=== PATIENT | female | born 1955 | race American Indian/Alaskan Native ===

== ENCOUNTER 2016-11-07 12:12 | Emergency (ER) | payer OTHER ==
[2016-11-07 12:28] VITALS: BP 114/72; PULSE 71; TEMP 97.7; BMI 29.6
--- NOTE | 2016-11-07 12:54 | PDOC ---
History of Present Illness - General Chief Complaint: Foreign Body (FB) Stated Complaint: OBJECT IN EYE Time Seen by Provider: 11/07/16 12:36 History Source: Patient Exam Limitations: No Limitations - History of Present Illness Initial Comments: 11/07/16 18:52 61 yr female c/o a piece of potato chip got in her right eye today and she feels some discomfort. no photophobia no tearing. Timing/Duration: momentarily Severity: mild Associated Symptoms: reports: denies symptoms Past History - Past Medical History Allergies/Adverse Reactions: Allergies Allergy/AdvReac Type Severity Reaction Status Date / Time lactose Allergy Verified 11/07/16 12:23 Home Medications: Ambulatory Orders Tobramycin 0.3% Ophth Soln [Tobrex Ophthalmic Solution -] 1 drop OD TID #1 bottle 11/07/16 Other medical history: HYPOGLYCEMIA - Psycho/Social/Smoking Cessation Hx Anxiety: No Suicidal Ideation: No Smoking History: Former smoker Have you smoked in the past 12 months: No Information on smoking cessation initiated: No Hx Alcohol Use: No Substance Use Type: None Review of Systems - Review of Systems Able to Perform ROS?: Yes Is the patient limited Nigerien proficient: No Constitutional: No: Symptoms Reported HEENTM: Yes: Symptoms Reported, See HPI Respiratory: No: Symptoms reported Cardiac (ROS): No: Symptoms Reported ABD/GI: No: Symptoms Reported : No: Symptoms Reported Musculoskeletal: No: Symptoms Reported Integumentary: No: Symptoms Reported Neurological: No: Symptoms reported *Physical Exam - Vital Signs Last Vital Signs Temp Pulse Resp BP Pulse Ox 97.7 F 71 19 114/72 97 11/07/16 12:23 11/07/16 12:23 11/07/16 12:23 11/07/16 12:23 11/07/16 12:23 - Physical Exam General Appearance: Yes: Nourished, Appropriately Dressed HEENT: positive: EOMI, DEONNA, Normal ENT Inspection, TMs Normal, Pharynx Normal, Other (neg tearing neg photophobia ) Neck: positive: Supple. negative: Tender Respiratory/Chest: positive: Lungs Clear, Normal Breath Sounds Cardiovascular: positive: Regular Rhythm, Regular Rate Gastrointestinal/Abdominal: positive: Normal Bowel Sounds, Soft Musculoskeletal: positive: Normal Inspection Extremity: positive: Normal Capillary Refill, Normal Inspection, Normal Range of Motion. negative: Tender Integumentary: positive: Normal Color, Dry, Warm Neurologic: positive: thermostat machine tender II-XII NML intact, Fully Oriented, Alert, Normal Mood/ Affect, Normal Response, Motor Strength 5/5 Procedures - Eye Procedure Alcaine Drops Administered: Yes Eye Irrigated w/ Saline(Ritesh Lens): Yes (200cc) Progress: 11/07/16 18:53 no fb,, no corneal abrasion seen on exam Medical Decision Making - Medical Decision Making 11/07/16 18:54 cc: feeling FB in right eye neg fluoroscein uptake will prescribe tobra drops as directed follow with the eye doctor in 1-2 days for follow up pt understands and agrees with the plan of care *DC/Admit/Observation/Transfer Diagnosis at time of Disposition: Foreign body, eye Qualifiers: Encounter type: initial encounter Laterality: right Qualified Code(s): T15.91XA - Foreign body on external eye, part unspecified, right eye, initial encounter - Discharge Dispostion Disposition: HOME Condition at time of disposition: Improved - Prescriptions Prescriptions: Tobramycin 0.3% Ophth Soln [Tobrex Ophthalmic Solution -] 1 drop OD TID #1 bottle - Referrals Referrals: Jimi Lopez [Primary Care Provider] - Sherman Collier MD [Staff Physician] - - Patient Instructions Additional Instructions: use the eye drops as directed for 7 days follow with or your eye doctor for follow up in 2-3 days
== END 2016-11-07 12:56 | disposition home or self-care (01) ==
LOC: JERFT 12:12
PROC: 3E1CX8Z Irrigation of Eye using Irrigating Substance (ICD-10-PCS; principal; 2016-11-07)
DX: T15.81XA Foreign body in other and multiple parts of external eye, right eye, initial encounter (principal)
CPT/HCPCS: 99281-25

== ENCOUNTER 2019-05-27 12:02 | Emergency (ER) | payer OTHER | END 2019-05-27 16:21 | disposition home or self-care (01) | LOC: JER 12:02 ==

== ENCOUNTER 2019-12-03 12:35 | Emergency (ER) | payer OTHER ==
--- NOTE | 2019-12-03 13:05 | PDOC ---
Rapid Medical Evaluation Time Seen by Provider: 12/03/19 12:50 Medical Evaluation: Allergies Allergy/AdvReac Type Severity Reaction Status Date / Time lactose Allergy Verified 05/27/19 12:05 12/03/19 12:51 CC: abdominal pain with n/v/d. Undigested food vomitus. Loose brown stool. Denies blood in vomit or stool. PE: No focal findings. Orders: labs, urine, zofran Patient will proceed to ED for evaluation. Discharge Disposition - Diagnosis Abdominal pain - Referrals - Patient Instructions - Post Discharge Activity
[2019-12-03] MEDS ORDERED: ONDANSETRON 4 MG/2 ML VIAL IVPUSH ONE (13:06)
[2019-12-03] MEDS ORDERED: SODIUM CHLORIDE 1,000 ML IV STA (13:06)
[2019-12-03 13:07] VITALS: BP 111/68; PULSE 93; TEMP 98.2; BMI 30.2
[2019-12-03] MEDS ORDERED: FAMOTIDINE 20 MG/50 ML IVPB 20 MG in PREMIX 50 IVPB ONE (13:32)
[2019-12-03] MEDS ORDERED: ACETAMINOPHEN 325 MG TABLET (FP) PO ONE (13:33)
--- NOTE | 2019-12-03 13:36 | PDOC ---
History of Present Illness - General Chief Complaint: Nausea/Vomiting Stated Complaint: VOMITING Time Seen by Provider: 12/03/19 12:50 History Source: Patient Exam Limitations: No Limitations - History of Present Illness Initial Comments: 12/03/19 15:14 CHIEF COMPLAINT: Vomiting/diarrhea HISTORY OF PRESENT ILLNESS: This is a 64-year-old female with a history of asthma (no hospitalizations) and anxiety/depression who presents with one day of generalized abdominal pain, vomiting, and diarrhea. She feels like she is "abou to get a fever." Vital signs on arrival are notable for HR 93. REVIEW OF SYSTEMS: GENERAL/CONSTITUTIONAL: Subjective fever. No weakness. No weight change. HEAD, EYES, EARS, NOSE AND THROAT: No change in vision. No ear pain or discharge. No sore throat. CARDIOVASCULAR: No chest pain or palpitations. RESPIRATORY: No cough, wheezing, or shortness of breath. GASTROINTESTINAL: See HPI. GENITOURINARY: No dysuria, frequency, or change in urination. MUSCULOSKELETAL: No joint or muscle swelling or pain. No neck or back pain. SKIN: No rash or easy bruising. NEUROLOGIC: No headache, vertigo, loss of consciousness, or loss of sensation. PSYCHIATRIC: No depression or anxiety. ENDOCRINE: No increased thirst. No abnormal weight change. HEMATOLOGIC/LYMPHATIC: No anemia, easy bleeding, or history of blood clots. ALLERGIC/IMMUNOLOGIC: No hives or skin allergy. No latex allergy. PHYSICAL EXAM: GENERAL: The patient is awake, alert, and fully oriented, in no acute distress. HEAD: Normal with no signs of trauma. ENT: Mild pharyngeal erythema without tonsillar swelling or exudates. Pupils equal, round and reactive to light, extraocular movements intact, sclera anicteric, conjunctiva clear. Neck supple. LUNGS: Clear to auscultation bilaterally. Normal excursion. No respiratory distress or use of accessory muscles. CV: RRR, S1/S2, no MRG. Cap refill < 2 sec. ABDOMEN: Soft, non-distended, diffusely tender but not peritoneal. EXTREMITIES: Normal range of motion, no edema. NEUROLOGICAL: Normal speech, normal gait. CN II-XII grossly intact. PSYCH: Normal mood, normal affect. SKIN: Warm, dry, normal turgor, no rashes or lesions noted. 12/03/19 15:35 Past History - Past Medical History Allergies/Adverse Reactions: Allergies Allergy/AdvReac Type Severity Reaction Status Date / Time lactose Allergy Verified 12/03/19 13:07 Home Medications: Ambulatory Orders Famotidine [Pepcid] 20 mg PO DAILY #20 tablet 05/27/19 Cephalexin Monohydrate [Keflex -] 500 mg PO BID #10 capsule 12/03/19 Ondansetron [Zofran *Odt*] 4 mg SL TID PRN #21 od.tablet 12/03/19 Asthma: Yes COPD: No - Immunization History Immunization Up to Date: Yes - Psycho Social/Smoking Cessation Hx Smoking History: Former smoker Have you smoked in the past 12 months: No Information on smoking cessation initiated: No Hx Alcohol Use: No Drug/Substance Use Hx: No Substance Use Type: None *Physical Exam - Vital Signs Last Vital Signs Temp Pulse Resp BP Pulse Ox 98.2 F 93 H 17 111/68 100 12/03/19 13:04 12/03/19 13:04 12/03/19 13:04 12/03/19 13:04 12/03/19 13:04 ED Treatment Course - LABORATORY CBC & Chemistry Diagram: 12/03/19 14:22 12/03/19 14:22 Medical Decision Making - Medical Decision Making 12/03/19 15:21 A/P: 64-year-old female with generalized abdominal pain and nausea/vomiting. 1. Labs including CBC, CMP, lipase, UA/culture 2. Zofran and Pepcid for symptomatic relief Labs notable for UA with 2+ leuk esterase. Culture sent. Will treat with Keflex. Patient reevaluated and feeling much better. Tolerating PO. Discussed CTAP to rule out further intra-abdominal pathology, however she does not wish to have IV placed given that she is a difficult stick, and states that she is feeling better and would like to leave. Follow-up instructions and return precautions reviewed. Discharge - Discharge Information Problems reviewed: Yes Clinical Impression/Diagnosis: Abdominal pain Condition: Improved Disposition: HOME - Admission No - Additional Discharge Information Prescriptions: Cephalexin Monohydrate [Keflex -] 500 mg PO BID #10 capsule Ondansetron [Zofran *Odt*] 4 mg SL TID PRN #21 od.tablet PRN Reason: Nausea - Follow up/Referral Referrals: Binh Winslow MD, MD [Primary Care Provider] - - Patient Discharge Instructions Patient Printed Discharge Instructions: DI for Urinary Tract Infection (UTI) Additional Instructions: You are being treated for urinary tract infection. Take Keflex (an antibiotic) as prescribed. Use Zofran as prescribed if needed for nausea. Follow-up with your primary care doctor next week. Return here for worsening pain, fever, vomiting/inability to keep down fluids, or any other concerning symptoms. - Post Discharge Activity
[2019-12-03] MEDS ORDERED: ONDANSETRON *ODT* 4 MG TABLET SL ONE (13:47)
[2019-12-03] MEDS ORDERED: FAMOTIDINE 20 MG TABLET PO ONE (13:47)
[2019-12-03] MEDS ORDERED: ACETAMINOPHEN 325 MG TABLET (FP) ONE (14:02)
[2019-12-03] MEDS ORDERED: FAMOTIDINE 20 MG TABLET ONE (14:02)
[2019-12-03] MEDS ORDERED: ONDANSETRON *ODT* 4 MG TABLET ONE (14:03)
[2019-12-03 14:28] LABS: HYALINE CASTS 3 /lpf (0-8); URINE APPEARANCE CLEAR; URINE BACTERIA 49.6 /hpf (NEGATIVE); URINE BILIRUBIN NEGATIVE (NEGATIVE); URINE COLOR YELLOW; URINE GLUCOSE (UA) NEGATIVE (NEGATIVE); URINE KETONE NEGATIVE (NEGATIVE); URINE LEUK ESTERASE 2+ (NEGATIVE); URINE NITRITE NEGATIVE (NEGATIVE); URINE PROTEIN NEGATIVE (NEGATIVE); URINE UROBILINOGEN 0.2 mg/dL (0.2-1.0); URINE WBC 4 /hpf (0-5)
[2019-12-03] MEDS ORDERED: CEPHALEXIN MONOHYDRATE 500 MG CAPSULE (UD) PO ONE (14:38)
[2019-12-03 14:39] LABS: BASO % 0.2 % (0-2.0); EOS % 0.4 % (0-4.5); HEMATOCRIT 37.3 % (32.4-45.2); HEMOGLOBIN 12.7 GM/dL (10.7-15.3); LYMPH % 11.7 % (8-40); MCH 29.1 pg (25.7-33.7); MCHC 34.1 g/dl (32.0-36.0); MEAN CELL VOLUME 85.5 fl (80-96); MEAN PLT VOLUME 9.4 fl (7.5-11.1); MONO % 4.9 % (3.8-10.2); NEUT % 82.8 % (42.8-82.8); PLATELET COUNT 192 K/MM3 (134-434); RBC 4.36 M/mm3 (3.60-5.2); RDW 14.4 % (11.6-15.6); WHITE BLOOD COUNT 8.2 K/mm3 (4.0-10.0)
[2019-12-03] MEDS ORDERED: CEPHALEXIN MONOHYDRATE 500 MG CAPSULE (UD) ONE (14:51)
[2019-12-03 15:11] LABS: ALBUMIN 3.3 g/dl (3.4-5.0); BILIRUBIN,TOTAL 0.6 mg/dL (0.2-1); BLOOD UREA NITROGEN 23.8 mg/dL (7-18); CALCIUM 8.7 mg/dL (8.5-10.1); CREATININE 0.7 mg/dL (0.55-1.3); POTASSIUM 3.8 mmol/L (3.5-5.1)
[2019-12-03 15:17] LABS: URINE RBC 0 /hpf (0-4)
== END 2019-12-03 15:33 | disposition home or self-care (01) ==
LOC: JER 12:35
DX: N39.0 Urinary tract infection, site not specified (principal); Z87.09 Personal history of other diseases of the respiratory system
CPT/HCPCS: 36415; 80053; 81003; 83690; 85025; 87086; 87804; 99284-25; Q0162

== ENCOUNTER 2020-04-15 12:05 | Emergency (ER) | payer OTHER ==
[2020-04-15 12:13] VITALS: BP 124/69; PULSE 73; BMI 29.6
[2020-04-15] MEDS ORDERED: DIPHTH,PERTUSS(ACELL),TET 0.5 ML DISP.SYRIN IM ONE (12:13)
--- NOTE | 2020-04-15 12:18 | PDOC ---
Rapid Medical Evaluation Chief Complaint: Injury Time Seen by Provider: 04/15/20 12:11 Medical Evaluation: Allergies Allergy/AdvReac Type Severity Reaction Status Date / Time lactose Allergy Verified 04/15/20 12:11 Vital Signs Temp Pulse Resp BP Pulse Ox 73 17 124/69 100 04/15/20 12:12 04/15/20 12:12 04/15/20 12:12 04/15/20 12:12 04/15/20 12:15 I have performed a brief in-person evaluation of this patient. The patient presents with a chief complaint of: LT foot pain s/p stepping on a glass today. does not recall last tetanus Pertinent physical exam findings: left foot wrapped with angela bandage. ambulating normal I have ordered the following: foot x-ray, boostrix The patient will proceed to the ED for further evaluation. Discharge Disposition - Diagnosis Injury of left foot - Discharge Dispostion Condition at time of disposition: Stable - Referrals - Patient Instructions - Post Discharge Activity
--- NOTE | 2020-04-15 12:39 | PDOC ---
History of Present Illness - General Chief Complaint: Injury Stated Complaint: LT FOOT INJURY Time Seen by Provider: 04/15/20 12:11 History Source: Patient Exam Limitations: No Limitations - History of Present Illness Initial Comments: 04/15/20 12:34 HISTORY OF PRESENT ILLNESS: 65-year-old female presents emergency department for evaluation of pain to the plantar surface of her left foot. Patient reports she was walking in her apartment barefoot when she stepped on some broken glass which was there after her son broke a dish accidentally. Patient reports she stepped on the glass approximately 2 days ago and has had pain to the bottom of her left foot since then. No recent travel or sick contacts. PAST MEDICAL HISTORY: Denies past medical history SURGICAL HISTORY: Denies ALLERGIES: No known drug allergies; lactose, wheat REVIEW OF SYSTEMS General/Constitutional: Denies fever or chills. Denies weakness, weight change. HEENT: Denies change in vision. Denies ear pain or discharge. Denies sore throat. Cardiovascular: Denies chest pain or shortness of breath. Respiratory: Denies cough, wheezing, or hemoptysis. Gastrointestinal: Denies nausea, vomiting, diarrhea or constipation. Denies rectal bleeding. Genitourinary: Denies dysuria, frequency, or change in urination. Musculoskeletal: Denies joint or muscle swelling or pain. Denies neck or back pain. Skin and breasts: See HPI Neurologic: Denies headache, vertigo, loss of consciousness, or loss of sensation. Psychiatric: Denies depression or anxiety. Endocrine: Denies increased thirst. Denies abnormal weight change. Hematologic/Lymphatic: Denies anemia, easy bleeding, or history of blood clots. Allergic/Immunologic: Denies hives or skin allergy. Denies latex allergy. PHYSICAL EXAM General Appearance: Well-appearing, appropriately dressed. No apparent distress, no intoxication. Musculoskeletal/Extremities: Normal inspection. FROM of all extremities, normal capillary refill. Pelvis Stable. No CVA tenderness. No tenderness to extremities, pedal edema, swelling, erythema or deformity. Integumentary: Glass fragment present to the plantar surface of the left foot. Surrounding erythema noted without induration or fluctuance present. Past History - Medical History Allergies/Adverse Reactions: Allergies Allergy/AdvReac Type Severity Reaction Status Date / Time lactose Allergy Verified 04/15/20 12:11 Home Medications: Ambulatory Orders NK [No Known Home Medication] 04/15/20 Asthma: Yes COPD: No - Immunization History Immunization Up to Date: No - Psycho-Social/Smoking History Smoking History: Never smoked Have you smoked in the past 12 months: No - Substance Abuse Hx (Audit-C & DAST Scrn) How often the patient has a drink containing alcohol: Never Score: In Men: 4 or > Positive; In Women: 3 or > Positive: 0 Screen Result (Pos requires Nsg. Audit-10AR): Negative In the last yr the pt used illegal drug/Rx for NonMed reason: No Score: Yes response is considered Positive: 0 Screen Result (Positive result requires Nsg. DAST-10): Negative *Physical Exam - Vital Signs Last Vital Signs Temp Pulse Resp BP Pulse Ox 73 17 124/69 100 04/15/20 12:12 04/15/20 12:12 04/15/20 12:12 04/15/20 12:12 Medical Decision Making - Medical Decision Making 04/15/20 12:40 A/P: 65-year-old woman with left plantar foot foreign body sensation 1 cm circular area of erythema presents with tenderness presents in the center of the erythematous area. Foreign body seen under magnification. Foreign body removed using bevel of an 18-gauge needle No discharge or drainage from the wounds No fluctuance appreciated As this is an organic material will defer antibiotic treatment at this time. patient is refusing antibiotic treatment as well. Patient refusing tetanus at this time Discharge home Portions of this note have been documented using voice recognition software. As a result, errors may occur in the staff mine warfare officer process. Effort has been made to correct all grammatical and staff mine warfare officer error, but some may have been missed which may produce sporadic inaccurate staff mine warfare officer or nonsensical phrases. Discharge - Discharge Information Problems reviewed: Yes Clinical Impression/Diagnosis: Foreign body foot/toe Condition: Stable Disposition: HOME - Admission No - Follow up/Referral Referrals: Luke Gonzales [Primary Care Provider] - - Patient Discharge Instructions Additional Instructions: Continue warm soaks to your foot. Take Tylenol or Motrin as needed for pain. Follow bacon skin lifter instructions for appropriate dosage. You were offered tetanus immunization today which you refused. It is recommended that you stay up-to-date on your vaccinations. Follow-up with your primary doctor for any new or worsening symptoms. Thank you very much for choosing us to provide your emergent healthcare needs. - Post Discharge Activity
== END 2020-04-15 12:43 | disposition home or self-care (01) ==
LOC: JERFT 12:05
DX: S90.852A Superficial foreign body, left foot, initial encounter (principal); Y99.8 Other external cause status
CPT/HCPCS: 99282-25

== ENCOUNTER → 2021-11-21 | Day surgery (SDC) | payer OTHER | END | disposition home or self-care (01) | LOC: JMAMMO-SUR 09:33 | PROVIDERS: ATTEND Nurse Practitioner Adult Health | PROC: 0HBT3ZX Excision of Right Breast, Percutaneous Approach, Diagnostic (ICD-10-PCS; principal; 2021-11-21) | DX: D17.1 Benign lipomatous neoplasm of skin and subcutaneous tissue of trunk (principal); N63.10 Unspecified lump in the right breast, unspecified quadrant | CPT/HCPCS: 19083; 87899; 88305-TC; A4648 ==

== ENCOUNTER 2022-11-10 17:29 | Emergency (ER) | payer OTHER ==
[2022-11-10 17:41] VITALS: BP 125/80; PULSE 78; RESP 14; TEMP 98.1; BMI 29.6
== END 2022-11-10 19:37 | disposition home or self-care (01) ==
LOC: JERFT 17:29
DX: M72.2 Plantar fascial fibromatosis (principal)
CPT/HCPCS: 73630-TC-LT; 99283-25